=== PATIENT | male | born 1975 | race Caucasian/White ===

== ENCOUNTER → 2019-06-10 | Outpatient (CLI) | payer OTHER ==
[2019-06-10 15:46] LABS: HCT 43.1 % (39.0-53.0); HGB 14.5 gm/dL (13.0-17.5); MCH 30.3 pg (25.0-35.0); MCHC 33.6 g/dL (31.0-37.0); MCV 90.1 fL (80.0-100.0); Mean Platelet Volume 7.2; Platelet Count 214 k/uL (150-450); RBC 4.78 m/uL (4.30-5.90); RDW 13.3 % (11.5-15.5); Reticulocyte % 2.3 % (0.5-2.0)
[2019-06-11 01:33] LABS: Iron Saturation 20.19 (15.00-50.00)
[2019-06-11 01:40] LABS: T4, Free (Free Thyroxine) 1.1 ng/dL (0.80-1.80)
[2019-06-11 01:55] LABS: Folate, Serum 17.3 ng/mL
== END | disposition home or self-care (01) ==
LOC: LABWHC1 15:22
PROVIDERS: ATTEND Psychiatry & Neurology Pain Medicine
DX: D64.9 Anemia, unspecified (principal)
CPT/HCPCS: 36415; 82607; 82668; 82728; 82746; 83540; 83550; 84207; 84425; 84439; 84443; 84466; 84481; 84591; 85027; 85045

== ENCOUNTER → 2019-07-01 | Outpatient (CLI) | payer OTHER ==
[2019-07-01 15:43] LABS: HCT 41.4 % (39.0-53.0); HGB 14.3 gm/dL (13.0-17.5); MCH 31.3 pg (25.0-35.0); MCHC 34.5 g/dL (31.0-37.0); MCV 90.7 fL (80.0-100.0); Mean Platelet Volume 6.3; Neutrophils % (A) 77 %; Platelet Count 283 k/uL (150-450); RBC 4.57 m/uL (4.30-5.90); RDW 13.2 % (11.5-15.5); WBC 7.4 k/uL (3.8-10.6)
[2019-07-01 15:44] LABS: Basophils % (A) 0 %; Eosinophils % (A) 0 %; Lymphocytes % (A) 14 %; Monocytes # (A) 0.5 k/uL (0-1.0); Monocytes % (A) 6 %; Neutrophils # (A) 5.7 k/uL (1.3-7.7)
[2019-07-02 03:21] LABS: African American GFR (CKD) 105.6 (60.0-200.0); Albumin 4.3 g/dL (3.80-4.90); Albumin/Globulin Ratio 2.53 (1.60-3.17); Calcium 9.4 mg/dL (8.7-10.3); Globulin 1.7 g/dL (1.6-3.3); Potassium 4.3 mmol/L (3.5-5.5); Total Bilirubin 0.5 mg/dL (0.2-1.2)
== END | disposition home or self-care (01) ==
LOC: LABWHC1 15:30
PROVIDERS: ATTEND Psychiatry & Neurology Pain Medicine
DX: R53.83 Other fatigue (principal)
CPT/HCPCS: 36415; 80053; 85025

== ENCOUNTER → 2019-08-13 | Outpatient (CLI) | payer OTHER ==
--- NOTE | 2019-08-13 13:29 | XR ---
EXAMINATION TYPE: XR chest 2V DATE OF EXAM: 08/13/2019 COMPARISON: NONE HISTORY: Chest pain TECHNIQUE: Frontal and lateral views of the chest are obtained. FINDINGS: There is no focal air space opacity. No evidence for pneumothorax. No pleural effusion. The cardiac silhouette size is within normal limits. The osseous structures are grossly intact. IMPRESSION: 1. No acute cardiopulmonary process.
== END | disposition home or self-care (01) ==
LOC: RADXRMAIN 12:56
PROVIDERS: ATTEND Emergency Medicine
DX: S20.302A Unspecified superficial injuries of left front wall of thorax, initial encounter (principal); R07.1 Chest pain on breathing
CPT/HCPCS: 71046

== ENCOUNTER → 2020-06-27 | Outpatient (CLI) | payer OTHER ==
[2020-06-27 11:27] LABS: HGB 15.8 gm/dL (13.0-17.5); MCH 30.6 pg (25.0-35.0); MCHC 33.6 g/dL (31.0-37.0); Mean Platelet Volume 7.4; Platelet Count 231 k/uL (150-450); RBC 5.16 m/uL (4.30-5.90)
[2020-06-27 11:39] LABS: Reticulocyte % 3.3 % (0.5-2.0)
[2020-06-27 19:25] LABS: % Iron Saturation 26.37 (15.00-50.00)
[2020-06-27 19:34] LABS: Ferritin 237.1 ng/mL (22.0-322.0); T4, Free (Free Thyroxine) 1.1 ng/dL (0.80-1.80)
[2020-06-27 19:50] LABS: Folate, Serum 22.8 ng/mL
[2020-06-27 20:26] LABS: Luteinizing Hormone 4.3 mIU/mL
[2020-06-27 20:33] LABS: Prolactin 1.7 ng/mL (2.1-17.7)
[2020-06-29 07:40] LABS: Vit B1(Thiamine) 99 ug/L (38-122)
== END | disposition home or self-care (01) ==
LOC: LABWHC1 09:37
PROVIDERS: ATTEND Urology
DX: N25.9 Disorder resulting from impaired renal tubular function, unspecified (principal); R53.83 Other fatigue
CPT/HCPCS: 36415; 82607; 82668; 82728; 82746; 83002; 83540; 83550; 84146; 84207; 84403; 84425; 84439; 84443; 84466; 84481; 84591; 85027; 85045

== ENCOUNTER → 2023-06-12 | Outpatient (CLI) | payer OTHER ==
[2023-06-12 20:02] LABS: ALT 38 U/L (10-49); AST 19 U/L (14-35)
[2023-06-12 20:47] LABS: Hepatitis B Surface Antigen Nonreactive; Hepatitis C IgG Antibody Nonreactive
[2023-06-12 20:49] LABS: Basophils # (A) 0.03 X 10*3/uL (0.00-0.10); Basophils % (A) 0.8 %; Eosinophils # (A) 0.07 X 10*3/uL (0.04-0.35); Eosinophils % (A) 1.8 %; HCT 39.8 % (39.6-50.0); HGB 13.7 d/dL (13.0-17.0); Lymphocytes # (A) 0.75 X 10*3/uL (0.90-5.00); Lymphocytes % (A) 18.9 %; MCHC 34.4 d/dL (32.0-37.0); MCV 87.1 FL (80.0-97.0); Mean Platelet Volume 10.7 FL (9.5-12.2); Monocytes # (A) 0.42 X 10*3/uL (0.20-1.00); Monocytes % (A) 10.6 %; NRBC Per 100 WBC 0 X 10*3/uL (0.00-0.01); Neutrophils # (A) 2.67 X 10*3/uL (1.80-7.70); Neutrophils % (A) 67.4 %; Platelet Count 246 X 10*3/uL (140-440); RBC 4.57 X 10*6/uL (4.40-5.60); RDW 13.5 % (11.5-14.5); WBC 3.96 X 10*3/uL (4.50-10.00)
[2023-06-12 22:25] LABS: Hepatitis B Surface AB- Quant 3.5 mIU/mL
== END | disposition home or self-care (01) ==
LOC: LABWHC1 15:32
PROVIDERS: ATTEND Physician Assistant Medical
DX: L40.0 Psoriasis vulgaris (principal)
CPT/HCPCS: 36415; 82565; 84450; 84460; 85025; 86480; 86704; 86706; 86803; 87340

== ENCOUNTER → 2024-01-22 | Outpatient (CLI) | payer OTHER ==
[2024-01-23 03:52] LABS: Chol/HDL Ratio 3.43 Ratio; LDL Cholesterol,Calculated 93.6 mg/dL (0.0-131.0)
== END | disposition home or self-care (01) ==
LOC: LABWHC1 15:22
PROVIDERS: ATTEND Pediatrics
DX: E11.9 Type 2 diabetes mellitus without complications (principal); E78.5 Hyperlipidemia, unspecified
CPT/HCPCS: 36415; 80061; 83036